=== PATIENT | male | born 1950 | race Asian ===

== ENCOUNTER → 2018-01-27 | Outpatient (CLI) | payer BC, MEDICARE | END | disposition home or self-care (01) | LOC: RADPV 10:31 | PROVIDERS: ATTEND Internal Medicine | DX: R05 Cough (principal) | CPT/HCPCS: 71046 ==

== ENCOUNTER → 2018-02-13 | Outpatient (CLI) | payer BC, MEDICARE ==
[~2018-02-13] VITALS: Ht 165.1 cm; Wt 62.5 kg
[~2018-02-13] MED LIST: AMLO-511 PO; ASPI81TA42 PO; CHOL200012 PO
[2018-02-13 12:08] VITALS: BP 140/82
== END | disposition home or self-care (01) ==
LOC: SRCNTR 12:07
PROVIDERS: ATTEND Internal Medicine Critical Care Medicine
DX: R05 Cough (principal); E78.5 Hyperlipidemia, unspecified; I10 Essential (primary) hypertension; Z79.82 Long term (current) use of aspirin; Z87.891 Personal history of nicotine dependence
CPT/HCPCS: G0463

== ENCOUNTER → 2018-04-17 | Outpatient (CLI) | payer BC, MEDICARE ==
[~2018-04-17] VITALS: Ht 165.1 cm; Wt 64.0 kg
[~2018-04-17] MED LIST changes: +ATOR10TA84 PO; +FLUT15.88 NASAL; +METO25 PO; +MONT10TA21 PO
[2018-04-17 11:30] VITALS: BP 124/74
== END | disposition home or self-care (01) ==
LOC: SRCNTR 11:21
PROVIDERS: ATTEND Internal Medicine Critical Care Medicine
DX: J44.9 Chronic obstructive pulmonary disease, unspecified (principal); I10 Essential (primary) hypertension; E78.5 Hyperlipidemia, unspecified
CPT/HCPCS: G0463

== ENCOUNTER → 2018-12-07 | Outpatient (CLI) | payer BC, MEDICARE | END | disposition home or self-care (01) | LOC: RADMN 09:13 | PROVIDERS: ATTEND Internal Medicine | DX: M43.16 Spondylolisthesis, lumbar region (principal); M48.061 Spinal stenosis, lumbar region without neurogenic claudication; M41.86 Other forms of scoliosis, lumbar region | CPT/HCPCS: 72148 ==

== ENCOUNTER → 2021-09-12 | Outpatient (CLI) | payer MEDICARE ==
[~2021-09-12] MED LIST changes: +AMLO-257 PO; -AMLO-511 PO; +ASPI81TA40 PO; -ASPI81TA42 PO; +MONT-35 PO; -MONT10TA21 PO
== END | disposition home or self-care (01) ==
LOC: RADPV 13:27
PROVIDERS: ATTEND Internal Medicine Cardiovascular Disease
DX: I10 Essential (primary) hypertension (principal)
CPT/HCPCS: 93306